=== PATIENT | female | born 1990 | race Caucasian/White ===

== ENCOUNTER 2017-01-28 01:39 | Inpatient (IN) | payer BC ==
[2017-01-28] MEDS ORDERED: Promethazine INJ(RESTRICTED)* 25 MG/ML 1 ML VIAL IV ONE (03:00)
[2017-01-28] MEDS ORDERED: Nalbuphine* 20 MG/ML 1 ML VIAL IV ONE (03:00)
[2017-01-28 03:04] LABS: Hematocrit 39 % (35-47); Mean Corpuscular HGB Conc 34 g/dl (31-36); Mean Corpuscular Hemoglobin 31 pg (27-31); Mean Corpuscular Volume 92 fL (80-97); Mean Platelet Volume 9 um3 (7.4-10.4); Red Cell Distribution Width 13 % (10.5-15); White Blood Count 11.4 10^3/ul (3.5-10.8)
[2017-01-28] MEDS ORDERED: oxyCODONE/Acetamin 5/325 MG* TAB PO PRN (05:55)
[2017-01-28] MEDS ORDERED: Glycerin ADULT SUPP PR PRN (05:55)
[2017-01-28] MEDS ORDERED: Witch Hazel PAD* JAR TOPICAL PRN (05:55)
[2017-01-28] MEDS ORDERED: Dibucaine 1% 28.35 GM TUBE PR PRN (05:55)
[2017-01-28] MEDS ORDERED: Simethicone CHEW TAB* 80 MG PO SCH (08:30)
[2017-01-28] MEDS ORDERED: Misoprostol TAB* 200 MCG ONE (08:49)
[2017-01-28] MEDS: Bacitracin OINTMENT* 1 TUBE TOPICAL SCH ×2 (09:27→21:14)
[2017-01-28] MEDS: Docusate CAP* 100 MG PO SCH ×3 (09:27→21:14)
[2017-01-28] MEDS: Naproxen TAB* 250 MG PO PRN (17:00)
[2017-01-28] MEDS: Acetaminophen TAB* 325 MG PO PRN (21:14)
--- NOTE | 2017-01-29 07:36 | PTEDU ---
Patient Name: FLAVIA LEON FLAVIA LEON selected video: Never Ever Shake a Baby to view on 01/29/2017 at 7:35:[address] [id number]
--- NOTE | 2017-01-29 07:46 | PTEDU ---
Patient Name: FLAVIA LEON FLAVIA LEON selected video: Follow Me Mum: [facility] to view on 01/29/2017 at 7:45:40 AM [id number]
[2017-01-29] MEDS: Docusate CAP* 100 MG PO SCH ×3 (08:12→20:21)
[2017-01-29] MEDS: Naproxen TAB* 250 MG PO PRN (08:12)
[2017-01-29] MEDS: Bacitracin OINTMENT* 1 TUBE TOPICAL SCH ×2 (08:12→20:24)
[2017-01-29 08:13] LABS: Hematocrit 38 % (35-47); Hemoglobin 12.8 g/dl (12.0-16.0); Mean Corpuscular HGB Conc 34 g/dl (31-36); Mean Corpuscular Hemoglobin 31 pg (27-31); Mean Corpuscular Volume 92 fL (80-97); Mean Platelet Volume 8 um3 (7.4-10.4); Red Cell Distribution Width 13 % (10.5-15); White Blood Count 10.4 10^3/ul (3.5-10.8)
[2017-01-29] MEDS ORDERED: Ferrous Gluconate TAB* 324 MG TAB PO SCH (09:00)
[2017-01-29] MEDS: Acetaminophen TAB* 325 MG PO PRN (20:21)
[2017-01-30 08:08] VITALS: BP 125/73
[2017-01-30] MEDS: Docusate CAP* 100 MG PO SCH (09:02)
== END 2017-01-30 11:16 | disposition home or self-care (01) | DRG 560 ==
LOC: MCHOBOUT 01:39 → MCHOB 02:18
PROVIDERS: ADMIT Obstetrics & Gynecology; ATTEND Obstetrics & Gynecology
PROC: 10E0XZZ Delivery of Products of Conception, External Approach (ICD-10-PCS; principal; 2017-01-28)
PROC: 0KQM0ZZ Repair Perineum Muscle, Open Approach (ICD-10-PCS; 2017-01-28)
PROC: 0HBAXZZ Excision of Inguinal Skin, External Approach (ICD-10-PCS; 2017-01-28)
DX: O99.52 Diseases of the respiratory system complicating childbirth (principal); J45.909 Unspecified asthma, uncomplicated; O70.1 Second degree perineal laceration during delivery; L91.8 Other hypertrophic disorders of the skin; Z88.6 Allergy status to analgesic agent; Z3A.39 39 weeks gestation of pregnancy; Z37.0 Single live birth
CPT/HCPCS: 36415; 85025; 85027; 86850; 86900; 86901; 88305; A9270-GY

== ENCOUNTER 2019-07-28 17:20 | Inpatient (IN) | payer OTHER ==
[2019-07-28] MEDS ORDERED: Lactated Ringers 1000 ML Bag* 1,000 ML IV ONE (19:55)
[2019-07-28] MEDS ORDERED: Buffered Lidocaine 1% SYRIN* 1 ML/SYRINGE INTRADERM ONE (19:55)
[2019-07-28] MEDS ORDERED: Oxytocin in LR* 20 UNITS/1,000 ML BAG IVPB SCH (20:00)
--- NOTE | 2019-07-28 20:31 | HP ---
General Information - Reason for Visit 29yo, , IUP@40+5, here in early labor - General Information Maternal Age: 29 Grav: 2 Para: 1 SAB: 0 IEA: 0 Estimated Due Date: 07/26/19 Determined By: LMP Gestational Age in Weeks/Days: 40+5 Maternal Blood Type and Rh: AB Positive - Results this Serology/RPR Result: Non-Reactive Rubella Result: Immune HBsAg Result: Negative HIV Result: Negative GBS Culture Result: Negative Past Medical History Delivery History: Hx Uncomplicated Vaginal Delivery Past Medical History Comment: Exercise induced asthma Past Surgical History Comment: Rhinoplasty [place] tooth extraction Family History Comment: Father: joint replacement Brother: Type I DM PGM: Parkinsons PGF: [place] PGM: Leukemia, breast cancer - Antepartal Records Antepartal Records: Reviewed, Uncomplicated Review of Systems Constitutional: Uncomfortable CV Complaint: No Respiratory: Shortness of Breath: No Gastrointestinal: No Nausea/Vomiting Genitourinary: No Dysuria, No Leaking Fluid, Spotting - bloody show Musculoskeletal: Contractions Neurological: No Headache, No Visual Changes Movement: Normal Exam Allergies/Adverse Reactions: Allergies MS Ibuprofen [Ibuprofen] Allergy (Verified 01/28/17 02:22) Swelling Temp 98.0, HR 95, RR 18, BP 117/75, O2 100% - Measurements Height: 5 ft 7 in Weight: 195 lb Weight in lbs: [phone] Body Mass Index (BMI): 30.5 Pre- Weight: 160 lb Weight Gained This : 35 lbs and 0 ozs - Exam Breast: Breast Exam Deferred CVA: No CVA Tenderness Extremities: No Edema Heart: Normal Rhythm/Heart Sounds HEENT: No Significant Findings Lungs: Clear Bilaterally Rectal: Rectal Exam Deferred Reflexes: DTR 2+ - Abdominal Exam Abdomen Exam: Non-Tender - Ultrasound/Biophysical Profile Ultrasound Status: Not Done Targeted Exam Findings Estimated Weight: 8 Cervical Exam: 4cm Effacement: 60% Station: -1 Presenting Part: Vertex Membrane Status: Intact Bleeding/Discharge: Bloody Show EFM Findings - External Monitor Findings Baseline Heart Rate: 130 External Monitor Findings: Accelerations Present, No Pattern of Variable or Late Decelerations, Variability Moderate External Monitor Findings Comment: No evidence of metabolic acidemia Contractions: Irregular, 45-90 Seconds Assessment/Plan - Assessment 29yo, , IUP@40+5, here in early labor GBS negative, AB+, RI, VSS No evidence of metabolic acidemia First VE: 3-4/60%; exam 2 hours later 4/60%, bloody show - cervix changing Irregular contractions - Plan Plan: Admit - Anticipate Vaginal Delivery Plan Comment: Admit to L&D PARQ discussion about augmenting early labor with Pitocin. Pt and in agreement with plan. Desires Nitrous for pain relief VE prn Anticipate progression to - Date/Time of Admission Date of Admission: 07/28/19 Time of Admission: 08:00
[2019-07-28 21:53] LABS: ABS Eosinophils 0.1 10^3/ul (0-0.6); ABS Lymphocytes 1.5 10^3/ul (1.0-4.8); ABS Monocytes 0.7 10^3/ul (0-0.8); ABS Neutrophils 6.9 10^3/ul (1.5-7.7); Eosinophil % 1.2 %; Hematocrit 35 % (35-47); Hemoglobin 11.9 g/dL (12.0-16.0); Lymphocyte % 15.8 %; Mean Corpuscular HGB Conc 35 g/dL (31-36); Mean Corpuscular Hemoglobin 31 pg (27-31); Mean Corpuscular Volume 90 fL (80-97); Mean Platelet Volume 8.4 fL (7.4-10.4); Platelet Count 257 10^3/uL (150-450); Red Blood Count 3.81 10^6 /uL (3.70-4.87); Red Cell Distribution Width 13 % (10-15); White Blood Count 9.2 10^3/uL (3.5-10.8)
--- NOTE | 2019-07-29 02:57 | PN ---
Progress Note - Progress Note Date of Service: 07/29/19 Note: S: Pt is sleeping in bed. O: 107/62 VE deferred Intermittent monitoring, FHR 135 Contractions: occasional A: IUP@40+5 in early labor no evidence of metabolic acidemia P: Start pitocin in the AM VE PRN Anticipate progression to
--- NOTE | 2019-07-29 06:43 | PN ---
Progress Note - Progress Note Date of Service: 07/29/19 Note: S: Pt is resting in bed. States contractions more painful, but still 8-9 minutes apart. O: VE: 5/80/-1, bulging bag FHR: 135, moderate variability, +accels, no decels Contractions: every 8-9 minutes. Palpate moderate Pitocin@2 A: IUP@40+5 in early labor no evidence of metabolic acidemia Contractions spaced, good resting tone. P: PARQ discussion about AROM. Pt and consent. Pitocin started at 2mU. AROM to clear fluid Anticipate progression to active labor and
[2019-07-29] MEDS ORDERED: OBEPIDURAL* 250 ML EPIDURAL ONE (07:17)
--- NOTE | 2019-07-29 07:25 | PN ---
Progress Note - Progress Note Date of Service: 07/29/19 Note: Pt requesting an epirdural. Anesthesia aware.
[2019-07-29] MEDS: Lactated Ringers 1000 ML Bag* 1,000 ML IV SCH ×2 (07:33→08:47)
[2019-07-29] MEDS ORDERED: Lidocaine 2% w/ EPI 1:200,000* 20 ML SDV VIAL ONE (07:53)
[2019-07-29 08:37] LABS: Urine Benzodiazepine Screen None Detected (None Detect); Urine Opiates Screen None Detected (None Detect)
[2019-07-29] MEDS ORDERED: Famotidine TAB* 20 MG PO PRN (08:53)
[2019-07-29] MEDS ORDERED: Lactated Ringers 1000 ML Bag* 500 ML IV PRN ×2 (08:53)
[2019-07-29] MEDS ORDERED: Phenylephrine 40 MCG/ML SYRINGE IV PUSH PRN ×2 (08:53)
[2019-07-29] MEDS ORDERED: Sodium Citrate/Citric Acid* 15 ML UDC PO PRN (08:53)
[2019-07-29] MEDS ORDERED: Lactated Ringers 1000 ML Bag* 1,000 ML IV ONE (08:53)
[2019-07-29] MEDS ORDERED: OBEPIDURAL* 250 ML EPIDURAL SCH (09:00)
[2019-07-29] MEDS ORDERED: Lactated Ringers 1000 ML Bag* 1,000 ML IV SCH ×3 (09:00→12:00)
--- NOTE | 2019-07-29 09:06 | PN ---
Progress Note - Progress Note Date of Service: 07/29/19 Note: S: Pt is resting in bed. Comfortable with epidural. Not feeling contractions or pressure. O: VE: 7/100/-1 FHR: 135, moderate variability, +accels, no decels Contractions: every 4 minutes. Palpate moderate Pitocin off. A: IUP@40+5 in active labor no evidence of metabolic acidemia Regular contractions, good resting tone. P: Anticipate progression
--- NOTE | 2019-07-29 10:29 | PN ---
Progress Note - Progress Note Date of Service: 07/29/19 Note: S: Pt is resting in bed. Comfortable with epidural. Feeling contractions and pressure. O: VE: 10/100/+2 FHR: 135, moderate variability, +accels, no decels Contractions: every 4 minutes. Palpate moderate Pitocin off. A: IUP@40+5 in active labor no evidence of metabolic acidemia Regular contractions, good resting tone. P: Will start pushing.
[2019-07-29] MEDS ORDERED: Glycerin ADULT SUPP PR PRN (11:29)
[2019-07-29] MEDS ORDERED: Dibucaine 1% 28.35 GM TUBE PR PRN (11:29)
[2019-07-29] MEDS ORDERED: Witch Hazel PAD* JAR TOPICAL PRN (11:29)
[2019-07-29] MEDS ORDERED: Acetaminophen TAB* 325 MG PO PRN (11:29)
--- NOTE | 2019-07-29 11:33 | PROCNOTE ---
[facility]: Delivery Note - Delivery A Date of : 07/29/19 Time of : 10:54 [place] Sex: Male Weight at : 8 lb 6 oz Score 1 Minute: 8 Score 5 Minutes: 9 Gestational Age in Weeks and Days at Delivery: 40 Weeks and 6 Days Delivery Method: Spontaneous Vaginal Labor: Spontaneous Did Patient attempt ?: N/A, No Previous Amniotic Fluid: Clear Estimated Blood Loss: 350 Anesthesia/Analgesia: CEI for Labor Delivered By: Janet Marquez Nursery Level of Nursery: Regular/Bedside - Perineum Perineal Injury: 2nd Degree Perineal Injury Comment: Repaired with 3-0 rapide with CEI infusing and under local anesthesia Perineal Repair: By Delivering Practioner - Events Delivery Events of Note: Pitocin During Labor - Additional Delivery Notes Additional Delivery Notes: G2, now P2 at 40+6 weeks presented to L&D in early labor. Labor was augmented with Pitocin and AROM. She progressed to complete and complete, began spontaneously pushing at 1036 with good maternal effort. Slow controlled delivery of head OA to PANCHO at 1054, loose nuchal x 1 reduced at perineum. Shoulders followed with next push and infant passed to maternal abdomen. Spontaneous cry, HR > 110. Apgars 8 and 9. Cord doubly clamped and cut by 's father once pulsations ceased, at least 3 minutes. Placenta delivered spontaneous and zeinab at 1104. Pitocin increased to 250 cc for brisk vaginal bleeding which quickly resolved, fundus firm with massage. Perineum and vagina carefully inspected, 2nd degree perineal laceration repaired under local anesthetic. Male , mother and baby stable at time of note. EBL = 350mL.
[2019-07-29] MEDS ORDERED: Oxytocin in LR* 20 UNITS/1,000 ML BAG IVPB SCH (12:00)
[2019-07-29] MEDS ORDERED: Simethicone TAB* 80 MG TAB.CHEW PO SCH (12:30)
[2019-07-29] MEDS: Docusate CAP* 100 MG PO SCH ×2 (12:38→21:13)
[2019-07-29] MEDS: Naproxen TAB* 250 MG PO PRN (13:15)
[2019-07-29] MEDS ORDERED: Lidocaine 1% INJ* 10 MG/ML 30 ML SDV ONE (14:05)
[2019-07-30] MEDS: Naproxen TAB* 250 MG PO PRN ×2 (01:21→17:44)
[2019-07-30 06:50] LABS: ABS Eosinophils 0.2 10^3/ul (0-0.6); ABS Lymphocytes 1.3 10^3/ul (1.0-4.8); ABS Monocytes 0.8 10^3/ul (0-0.8); ABS Neutrophils 7.7 10^3/ul (1.5-7.7); Eosinophil % 1.6 %; Hematocrit 31 % (35-47); Hemoglobin 10.8 g/dL (12.0-16.0); Lymphocyte % 13.4 %; Mean Corpuscular HGB Conc 35 g/dL (31-36); Mean Corpuscular Hemoglobin 31 pg (27-31); Mean Corpuscular Volume 90 fL (80-97); Mean Platelet Volume 8.2 fL (7.4-10.4); Platelet Count 219 10^3/uL (150-450); Red Blood Count 3.45 10^6 /uL (3.70-4.87); Red Cell Distribution Width 13 % (10-15)
[2019-07-30] MEDS: Docusate CAP* 100 MG PO SCH ×3 (07:25→21:11)
[2019-07-30] MEDS ORDERED: Ferrous Gluconate TAB* 324 MG TAB PO SCH (09:00)
[2019-07-31] MEDS: Docusate CAP* 100 MG PO SCH (07:59)
[2019-07-31 08:10] VITALS: BP 133/74
== END 2019-07-31 11:03 | disposition home or self-care (01) | DRG 807 ==
LOC: MCHOBOUT 17:20 → MCHOB 20:14
PROVIDERS: ADMIT Advanced Practice Midwife; ATTEND Advanced Practice Midwife
PROC: 10907ZC Drainage of Amniotic Fluid, Therapeutic from Products of Conception, Via Natural or Artificial Opening (ICD-10-PCS; 2019-07-28)
PROC: 4A1HXCZ Monitoring of Products of Conception, Cardiac Rate, External Approach (ICD-10-PCS; 2019-07-28)
PROC: 10E0XZZ Delivery of Products of Conception, External Approach (ICD-10-PCS; principal; 2019-07-29)
PROC: 0KQM0ZZ Repair Perineum Muscle, Open Approach (ICD-10-PCS; 2019-07-29)
DX: O48.0 Post-term pregnancy (principal); Z37.0 Single live birth; O70.1 Second degree perineal laceration during delivery; O69.81X0 Labor and delivery complicated by cord around neck, without compression, not applicable or unspecified; Z88.6 Allergy status to analgesic agent; Z3A.40 40 weeks gestation of pregnancy
CPT/HCPCS: 36415; 80307; 85025; 86850; 86900; 86901; A9270-GY